=== PATIENT | male | born 1980 | race Caucasian/White ===

== ENCOUNTER 2018-03-12 10:30 | Outpatient (RCR) | payer BC ==
[2012-01-12 21:53] VITALS: BP 118/70
== END 2018-03-12 11:00 | disposition home or self-care (01) ==
LOC: PT 10:30
DX: S83.511D Sprain of anterior cruciate ligament of right knee, subsequent encounter (principal); S83.281D Other tear of lateral meniscus, current injury, right knee, subsequent encounter; S76.112D Strain of left quadriceps muscle, fascia and tendon, subsequent encounter

== ENCOUNTER 2018-04-20 08:30 | Outpatient (RCR) | payer BC ==
[2012-01-12 21:53] VITALS: BP 118/70
== END 2018-04-20 09:00 | disposition home or self-care (01) ==
LOC: PT 08:30
DX: S83.281D Other tear of lateral meniscus, current injury, right knee, subsequent encounter (principal); S83.511D Sprain of anterior cruciate ligament of right knee, subsequent encounter

== ENCOUNTER 2023-03-28 08:00 | Outpatient (RCR) | payer OTHER | END 2023-04-27 | disposition home or self-care (01) | LOC: PT | DX: M54.16 Radiculopathy, lumbar region (principal) ==

== ENCOUNTER 2023-04-30 08:00 | Outpatient (RCR) | payer OTHER | END 2023-05-28 | disposition home or self-care (01) | LOC: PT | DX: M54.16 Radiculopathy, lumbar region (principal) ==